=== PATIENT | female | born 1990 | race Caucasian/White ===

== ENCOUNTER 2020-07-31 19:46 | Emergency (ER) | payer OTHER, SELFPAY ==
--- NOTE | ~2020-07-31 | XR_ITS ---
EXAMINATION: XR foot LT min 3V DATE: 07/31/2020 20:23 INDICATION: Left foot pain TECHNIQUE: Dorsoplantar, lateral, and 2 oblique views of the left foot were obtained. COMPARISON: None. FINDINGS: There is no fracture, dislocation, or subluxation. The bones, soft tissues, and joint space s are normal. IMPRESSION: 1. No acute osseous abnormality. Reviewed, dictated and finalized at location A.
[2020-07-31 20:03] VITALS: BP 123/67; PULSE 81; RESP 16; TEMP 36.6; O2SAT 98
--- NOTE | 2020-07-31 21:00 | ED.LOWEXIN ---
HPI - Extremity Injury (Lower) General Chief Complaint: Extremity Injury, Lower Stated Complaint: L foot/ankle pain Source: patient Mode of arrival: ambulatory Limitations: no limitations History of Present Illness HPI Narrative: Pt tripped and her foot rolled under her. SHe has pain on lateral aspect of left foot. She states its gets thopbbing and pain shoots up the foot into ankle and leg. SHe is able to bear weight but is limping. SHe has no other injury MD complaint: foot injury Injury: Left: foot Type of Injury: blunt Place: home Severity: severe Relieving factors: nothing Exacerbating factors: weight bearing and movement Context: fall Other symptoms: none Related Data Home Medications Medication Instructions Recorded Confirmed escitalopram oxalate [Lexapro] 10 mg PO DAILY 07/31/20 07/31/20 Allergies Allergy/AdvReac Type Severity Reaction Status Date / Time No Known Allergies Allergy Verified 07/31/20 20:02 Review of Systems Review of Systems: All systems reviewed & are unremarkable except as noted in HPI and below PMFSH Social History Social History (Updated 07/31/20 @ 21:02 by Aundrea Ramos MD) Smoking status: Never smoker Alcohol intake: never Substance use type: does not use Exam Const: General: no acute distress and alert Nutritional Appearance: well nourished Orientation/consciousness: patient oriented x3 HENMT: Head: normal to inspection Eyes: Conjunctivae: conjunctivae normal Pupils: Equal, round and reactive pupils present Neck: Neck: normal visual inspection Chest: Chest palpation & inspection: normal inspection of the chest Resp: Effort & Inspection: normal respiratory effort Skin: General skin exam: normal color Rashes: no rashes Neuro: General: patient oriented x3 and moves all extremities Extrem: General: normal to inspection, no clubbing, cyanosis or edema, no pedal edema and no edema Other: no bruising or external abnormality seen. Pt tender to toudch over 5th MT area Psych: Mental Status: mental status grossly normal Affect: normal affect Course Vital Signs Vital signs: Vital Signs Temperature 36.6 C 07/31/20 20:03 Pulse Rate 81 07/31/20 20:03 Respiratory Rate 16 07/31/20 20:03 Blood Pressure 123/67 07/31/20 20:03 Pulse Oximetry 98 07/31/20 20:03 Temperature 36.6 C 07/31/20 20:03 Pulse Rate 81 07/31/20 20:03 Respiratory Rate 16 07/31/20 20:03 Blood Pressure 123/67 07/31/20 20:03 Pulse Oximetry 98 07/31/20 20:03 Discharge Plan Discharge Clinical Impression: Acute foot pain Qualifiers: Laterality: left Qualified Code(s): M79.672 - Pain in left foot Patient Disposition: Home, Self-Care Condition: Stable Instructions: Antibiotic Form, Foot Contusion (ED) Additional Instructions: Use post op shoe as needed for pain. Alternate tylenol and motrin. Ice may be helpful as well. If pain continues, go see your regular doctor and have a repeat xray done. Prescriptions: No Action escitalopram oxalate [Lexapro] 10 mg Tablet 10 mg PO DAILY RF: 0 Follow-up/Referrals: UNKNOWN,DOCTOR [Primary Care Provider] - Time of Disposition: 21:06
[2020-07-31 21:06] VITALS: RESP 15; O2SAT 100
== END 2020-07-31 21:15 | disposition home or self-care (01) ==
PROVIDERS: Emergency Provider Emergency Medicine
DX: M79.672 Pain in left foot (principal)
CPT/HCPCS: 73630; 99282; 99283